=== PATIENT | male | born 1965 | race Caucasian/White ===

== ENCOUNTER 2022-04-13 15:22 | Outpatient (REF) | payer OTHER, SELFPAY ==
[2022-04-13 19:44] LABS: ALT 23 U/L (16-63); Anion Gap 11.2 mmol/L (3-11); BUN 15 mg/dL (7-18); CO2 26.8 mmol/L (21.0-32.0); CREATININE 1.1 mg/dL (0.70-1.30); Calcium 8.5 mg/dL (8.5-10.1); Calculated LDL 105 mg/dL (<100); Chloride 104 mmol/L (98-107); Cholesterol 199 mg/dL (<200); Creatine Kinase 119 U/L (39-308); Glucose 94 mg/dL (74-106); HDL Cholesterol 41 mg/dL (40-60); Potassium 3.9 mmol/L (3.5-5.1); Sodium 142 mmol/L (136-145); Triglyceride 267 mg/dL (<150)
== END 2022-04-13 15:23 | disposition home or self-care (01) ==
LOC: NCHCN 15:22
PROVIDERS: PCP Physician Assistant Medical; Visit Provider Internal Medicine
DX: I10 Essential (primary) hypertension (principal); R79.89 Other specified abnormal findings of blood chemistry
CPT/HCPCS: 80048; 80061; 82550; 84460

== ENCOUNTER 2023-05-20 16:34 | Outpatient (REF) | payer OTHER, SELFPAY ==
[2023-05-20 20:09] LABS: Anion Gap 8.4 mmol/L (3-11); BUN 17 mg/dL (7-18); CO2 29.6 mmol/L (21.0-32.0); CREATININE 1.3 mg/dL (0.70-1.30); Calcium 9.1 mg/dL (8.5-10.1); Calculated LDL 156 mg/dL (<100); Chloride 102 mmol/L (98-107); Cholesterol 226 mg/dL (<200); Estimated GFR 63.28 (mL/min/1.73m2); Glucose 101 mg/dL (74-106); HDL Cholesterol 49 mg/dL (40-60); Potassium 4.5 mmol/L (3.5-5.1); Sodium 140 mmol/L (136-145); Triglyceride 107 mg/dL (<150)
== END 2023-05-20 16:35 | disposition home or self-care (01) ==
LOC: NCHCN 16:34
PROVIDERS: PCP Physician Assistant Medical; Visit Provider Internal Medicine
DX: I10 Essential (primary) hypertension (principal)
CPT/HCPCS: 80048; 80061

== ENCOUNTER 2024-07-21 15:20 | Outpatient (REF) | payer OTHER, SELFPAY ==
[2024-07-21 20:01] LABS: ALT 38 U/L (16-63); Anion Gap 7.4 mmol/L (3-11); BUN 17 mg/dL (7-18); CO2 28.6 mmol/L (21.0-32.0); CREATININE 1.1 mg/dL (0.70-1.30); Calculated LDL 75 mg/dL (<100); Chloride 104 mmol/L (98-107); Cholesterol 139 mg/dL (<200); Estimated GFR 76.85 (mL/min/1.73m2); Glucose 107 mg/dL (74-106); HDL Cholesterol 51 mg/dL (40-60); Potassium 4.7 mmol/L (3.5-5.1); Sodium 140 mmol/L (136-145); Triglyceride 68 mg/dL (<150)
[2024-07-21 20:22] LABS: Creatine Kinase 115 U/L (39-308)
== END 2024-07-21 15:21 | disposition home or self-care (01) ==
LOC: NCHCN 15:20
PROVIDERS: PCP Physician Assistant Medical; Visit Provider Internal Medicine
DX: I10 Essential (primary) hypertension (principal)
CPT/HCPCS: 80048; 80061; 82550; 84460

== ENCOUNTER 2025-06-25 15:34 | Outpatient (REF) | payer BC, SELFPAY ==
[2025-06-25 20:00] LABS: Abs Immature Grans 0.02 10^3/uL (0.0-0.06); HCT 44.7 % (40.0-50.0); HGB 14.4 g/dL (13.5-17.5); Immature Grans % 0.3 %; MCH 28.3 pg (27.0-33.0); MCHC 32.2 % (32.0-36.0); MCV 88 fL (80-95); MPV 9.3 fL (8.0-11.0); Platelet Count 273 10^3/uL (130-400); RBC 5.08 10^6/uL (4.36-5.78); RDW 12.1 % (11.8-14.1); RDW-SD 38.9 fL; WBC 6.59 10^3/uL (4.4-10.8)
[2025-06-25 20:03] LABS: ESR 41 mm/hr (0-20)
[2025-06-25 20:14] LABS: Anion Gap 6.4 mmol/L (3-11); BUN 14 mg/dL (7-18); C-Reactive Protein 1.57 mg/dL (<or=0.5); CO2 29.6 mmol/L (21.0-32.0); Calcium 9.6 mg/dL (8.5-10.1); Chloride 103 mmol/L (98-107); Creatine Kinase 71 U/L (39-308); Estimated GFR 85.63 (mL/min/1.73m2); Glucose 126 mg/dL (74-106); Potassium 4.3 mmol/L (3.5-5.1); Sodium 139 mmol/L (136-145); TSH 1.78 uIU/mL (0.36-3.74)
[2025-07-05 01:29] LABS: Testosterone, Free 55.1 pg/mL (35.0-155.0)
== END 2025-06-25 15:35 | disposition home or self-care (01) ==
LOC: NCHCN 15:34
PROVIDERS: PCP Physician Assistant Medical; Visit Provider Internal Medicine
DX: R53.82 Chronic fatigue, unspecified (principal); I10 Essential (primary) hypertension
CPT/HCPCS: 80048; 82550; 84402; 84403; 85652; 84443; 85025; 86140

== ENCOUNTER 2025-07-23 14:44 | Outpatient (REF) | payer BC, SELFPAY ==
[2025-07-23 19:16] LABS: ESR 11 mm/hr (0-20)
[2025-07-23 19:22] LABS: Glucose 124 mg/dL (74-106)
[2025-07-23 19:26] LABS: C-Reactive Protein < 0.50 mg/dL (<or=0.5)
== END 2025-07-23 14:45 | disposition home or self-care (01) ==
LOC: NCHCN 14:44
PROVIDERS: PCP Physician Assistant Medical; Visit Provider Internal Medicine
DX: M35.3 Polymyalgia rheumatica (principal)
CPT/HCPCS: 82947; 85652; 86140

== ENCOUNTER 2025-10-08 12:29 | Outpatient (REF) | payer BC, OTHER, SELFPAY ==
[2025-10-08 20:28] LABS: C-Reactive Protein < 0.50 mg/dL (<=0.50)
[2025-10-09 22:19] LABS: Hepatitis C Ab w Rflx HCV PCR Negative (Negative)
== END 2025-10-08 12:30 | disposition home or self-care (01) ==
LOC: NCHCN 12:29
PROVIDERS: PCP Physician Assistant Medical; Visit Provider Internal Medicine
DX: M35.3 Polymyalgia rheumatica (principal); Z11.59 Encounter for screening for other viral diseases
CPT/HCPCS: 86803; 86140